=== PATIENT | female | born 1960 | race Caucasian/White ===

== ENCOUNTER 2020-02-17 16:35 | Emergency (ER) | payer OTHER, SELFPAY ==
[2020-02-17] VITALS (7 sets, daily range): BP systolic 112–129; BP diastolic 70–97; PULSE 53–132; RESP 13–22; TEMP 36.3–36.8; O2SAT 96–99
--- NOTE | ~2020-02-17 | XR_ITS ---
EXAMINATION: XR chest 2V DATE: 02/17/2020 17:27 INDICATION: Chest pain and dizziness TECHNIQUE: PA and lateral views of the chest are obtained. COMPARISON: None available FINDINGS: The lungs are free of acute opacities. There is no pleural effusion or pneumothorax. The ca rdiomediastinal silhouette is normal. The visualized bones and soft tissues are unremarkable. IMPRESSION: 1. No acute cardiopulmonary abnormality. Reviewed, dictated and finalized at location A.
--- NOTE | 2020-02-17 16:57 | ECG_ITS ---
Measurements Intervals [place] Rate: 119 P: 19 ND: 125 QRS: 67 QRSD: 84 T: 58 QT: 307 QTc: 432 Interpretive Statements SINUS RHYTHM WITH SHORT RUNS OF ATRIAL TACHYCARDIA ABNORMAL ECG Electronically Signed On 02-17-2020 20:21:40 CDT by Moisés Dewey D.O.
[2020-02-17 17:31] LABS: Basophils Percent Auto 0.4 % (0.2-1.2); Eosinophils Absolute Auto 0.2 K/mm3 (0-0.3); Eosinophils Percent Auto 2.2 % (0-4.4); Hematocrit 37.8 % (37.0-47.0); Hemoglobin 12.7 g/dL (12.0-15.0); Immature Granulocyte Absolute 0.03 K/mm3 (0.00-0.031); Immature Granulocyte Percent A 0.4 % (0-0.5); Lymphocytes Absolute Auto 2.53 K/mm3 (0.9-3.2); Lymphocytes Percent Auto 31.1 % (18.3-44.2); Mean Corpuscular HGB Conc 33.6 g/dl (32-36); Mean Corpuscular Hemoglobin 28.2 pg (26-34); Mean Platelet Volume 9.9 fl (7.4-10.4); Monocytes Absolute Auto 0.4 K/mm3 (0.1-0.6); Monocytes Percent Auto 5.3 % (2.6-8.5); Neutrophils Absolute Auto 4.9 K/mm3 (1.3-6.7); Neutrophils Percent Auto 60.6 % (45.5-73.1); Platelet Count Result 330 k/mm3 (150-375); Red Cell Distribution Width 12.3 % (11.5-14.5); White Blood Count 8.1 K/mm3 (4.5-10.0)
[2020-02-17 17:37] LABS: Prothrombin Time 13.1 Seconds (11.1-14.7)
[2020-02-17 17:38] LABS: Partial Thromboplastin Time 26.6 SECONDS (22.3-36.8)
[2020-02-17 17:45] LABS: Anion Gap 9 mmol/L (8-16); Blood Urea Nitrogen 10 mg/dL (7-17); Calcium 9.6 mg/dL (8.4-10.2); Carbon Dioxide 24 mmol/L (22-30); Chloride 104 mmol/L (98-107); Estimated CRCL calculation 54 ml/min; Estimated Glomerular Filt Rate > 60; Glucose 111 mg/dL (65-105); Potassium 3.8 mmol/L (3.4-5.0); Sodium 137 mmol/L (137-145)
[2020-02-17 17:52] LABS: Troponin I < 0.012 ng/mL (0.000-0.034)
--- NOTE | 2020-02-17 18:53 | PC.NURSE ---
Patient reports shortness of breath with NSAIDS and aspirin. Aspirin order discontinued due to this adverse reaction.
--- NOTE | 2020-02-17 19:09 | ED.ARRPALP ---
HPI - Arrhythmia/Palpitations General Chief Complaint: Arrhythmia/Palpitations Stated Complaint: dizzy/lightheaded/ho a fib Time Seen by Provider: 02/17/20 19:06 Source: patient Mode of arrival: ambulatory Limitations: no limitations History of Present Illness HPI narrative: Patient is a 59-year-old female with a history of hypothyroidism, paroxysmal atrial fibrillation not on any anticoagulation who presents for evaluation of palpitations. Patient states that times since 3 PM, she has felt she has had an irregular heartbeat or skipped beats. Reports some associated lightheadedness and dizziness without syncope. She denies any chest pain. No fever, cough, cold type symptoms. No recent sick contacts. No leg swelling or leg pain. No numbness or weakness. Patient states she has seen a physician office nurse at [facility] approximately 2 to 3 years ago who was not concerned about these palpitations and advised her to take flecainide if she was symptomatic. Patient does not currently have this medication. Related Data Home Medications Medication Instructions Recorded Confirmed albuterol sulfate INHALATION 02/17/20 levothyroxine [Synthroid] 02/17/20 lisinopril 02/17/20 Allergies Allergy/AdvReac Type Severity Reaction Status Date / Time aspirin AdvReac Difficulty Verified 02/17/20 18:51 Breathing NSAIDS (Non-Steroidal AdvReac Difficulty Verified 02/17/20 17:11 Anti-Inflamma Breathing Review of Systems Review of Systems: Narrative: CONSTITUTIONAL: Denies fever, chills, or sweats. ENT: Denies rhinorrhea, congestion, sore throat, or otalgia. CARDIOVASCULAR: Denies chest pain, or edema, reports palpitations RESPIRATORY: Denies cough or dyspnea. GASTROINTESTINAL: Denies abdominal pain, nausea, vomiting, or diarrhea. GENITOURINARY: Denies dysuria or hematuria. SKIN: Denies rash or itching. MUSCULOSKELETAL: Denies back pain, joint pain, or myalgia. NEUROLOGIC: Denies headache, numbness, or weakness. [facility] Past Medical History Medical History (Updated 02/17/20 @ 21:26 by Courtney Burk MD) Acid reflux Hypothyroidism Social History Social History (Updated 02/17/20 @ 19:30 by Courtney Burk MD) Smoking status: Never smoker Substance use: never Gender identity (if verbalized by the patient): Female Exam Narrative: Exam Narrative: GENERAL: Awake, alert, conversant HEAD: Normocephalic, atraumatic. EYES: PERRLA and EOMI. ENT: Nares clear, no rhinorrhea or epistaxis. Mucous membranes moist. NECK: Supple. CHEST: No respiratory distress, breathing even and non labored HEART: Regular rate, P waves present, regular rhythm ABDOMEN:Non distended, non tender EXTREMITIES: Normal range of motion. No edema. SKIN: Warm, dry, no rash. NEURO:No focal deficits. Alert and oriented x3 Course Vital Signs Vital signs: Vital Signs Temperature 36.8 C 02/17/20 17:08 Pulse Rate 53 L 02/17/20 17:08 Respiratory Rate 18 02/17/20 17:08 Blood Pressure 123/70 02/17/20 17:08 Pulse Oximetry 97 02/17/20 17:08 Temperature 36.3 C L 02/17/20 20:43 Pulse Rate 79 02/17/20 20:43 Respiratory Rate 22 H 02/17/20 20:43 Blood Pressure 118/87 02/17/20 20:43 Pulse Oximetry 97 02/17/20 20:43 MDM - Arrhythmia/Palpitations MDM Narrative Medical decision making narrative: Patient presenting for evaluation of palpitations. At the time of assessment, symptoms are quite mild although she is aware of the palpitations. No current associated chest pain, shortness of breath, lightheadedness or dizziness. Patient states she notices the symptoms most with exertion or stress. IV access obtained and labs are drawn. Patient had serial EKGs which are most consistent with multifocal atrial tachycardia, third EKG does appear to have this patient back in sinus rhythm and patient is asymptomatic at this time. No elevations in troponin. Patient does not have signs or symptoms of a pulmonary embolism, Well
--- NOTE | 2020-02-17 20:04 | ECG_ITS ---
Measurements Intervals [place] Rate: 93 P: 31 [place]: 205 QRS: 32 QRSD: 91 T: 65 QT: 381 QTc: 474 Interpretive Statements ATRIAL FLUTTER/TACHYCARDIA WITH RAPID VENTRICULAR RESPONSE WITH 2 SINUS BEATS ABNORMAL ECG Electronically Signed On 02-17-2020 20:23:43 CDT by Moisés Dewey D.O.
[2020-02-17 20:18] LABS: Troponin I < 0.012 ng/mL (0.000-0.034)
--- NOTE | 2020-02-17 20:51 | ECG_ITS ---
Measurements Intervals [place] Rate: 71 P: 0 [place]: 139 QRS: 52 QRSD: 85 T: 63 QT: 377 QTc: 411 Interpretive Statements SINUS RHYTHM NORMAL ECG Electronically Signed On 02-18-2020 7:28:12 CDT by Moisés Dewey D.O.
== END 2020-02-17 21:49 | disposition home or self-care (01) ==
PROVIDERS: Emergency Medicine; Emergency Provider Emergency Medicine; PCP Family Medicine
DX: R00.2 Palpitations (principal); I47.1 Supraventricular tachycardia; E03.9 Hypothyroidism, unspecified; I48.0 Paroxysmal atrial fibrillation; K21.9 Gastro-esophageal reflux disease without esophagitis
CPT/HCPCS: 36415; 71046; 80048; 84443; 84484; 85025; 85610; 85730; 93005; 99284

== ENCOUNTER → 2021-10-11 15:53 | Outpatient (CLI) | payer OTHER, SELFPAY ==
--- NOTE | ~2021-10-11 | MM_ITS ---
EXAMINATION: MM screening luis BI w maria d HISTORY: Screening mammogram TECHNIQUE: Craniocaudal and mediolateral oblique 3-D tomosynthesis images were obtained and synthetic 2-D images were generated. CAD analysis was submitted and interpreted. COMPARISON: 09/23/2018 bilateral screening mammogram BREAST PARENCHYMAL COMPOSITION: There are scattered areas of fibroglandular density. FINDINGS: There is no evidence of suspicious mass, calcification, or architectural distortion to sugg est malignancy in either breast. There has been no suspicious interval change. IMPRESSION: 1. No mammographic evidence of malignancy. 2. Recommend routine screening mammography in one year. BI-RADS Category 1: Negative Reviewed, dictated and finalized at location A.
== END ==
PROVIDERS: PCP Family Medicine; Visit Provider Physician Assistant
DX: Z12.31 Encounter for screening mammogram for malignant neoplasm of breast (principal)
CPT/HCPCS: 77063; 77067

== ENCOUNTER 2022-10-11 14:43 | Emergency (ER) | payer OTHER, SELFPAY ==
[2022-10-11 15:00] VITALS: BP 127/73; PULSE 66; RESP 12; TEMP 37.1; O2SAT 99
[2022-10-11 15:01] VITALS: BP 127/73; PULSE 66; RESP 12; TEMP 37.1; O2SAT 99
--- NOTE | 2022-10-11 15:20 | ED.EYEPROB ---
HPI - Eye Problem General Chief complaint: Eye Problems Stated complaint: left eye irritation Time Seen by Provider: 10/11/22 15:20 Source: patient Mode of arrival: ambulatory Limitations: no limitations History of Present Illness HPI Narrative: 62-year-old female presents with pain, clear drainage, light sensitivity to left eye. States that she was outside doing yd work and was walking backwards and was hit with a tree branch to her left eye. Injury happened around 11:00 a.m.. Denies vision change. All systems reviewed and negative except as noted above. Related Data Home Medications Medication Instructions Recorded Confirmed albuterol sulfate 90 mcg/actuation 2 puff inhalation PRN PRN Wheezing 02/17/20 10/11/22 aerosol inhaler levothyroxine 88 mcg tablet 88 mcg PO DAILY 02/17/20 10/11/22 (Synthroid) lisinopril 10 mg tablet 10 mg PO DAILY 02/17/20 10/11/22 Allergies Allergy/AdvReac Type Severity Reaction Status Date / Time aspirin AdvReac Intermediate Wheezing Verified 10/11/22 15:18 NSAIDS (Non-Steroidal AdvReac Intermediate Wheezing Verified 10/11/22 15:18 Anti-Inflamma Review of Systems Review of Systems: CONSTITUTIONAL: Denies fever, chills, or sweats. EYES: Denies visual changes . Reports redness, clear discharge, light sensitivity left eye.. ENT: Denies rhinorrhea, congestion, sore throat, or otalgia. CARDIOVASCULAR: Denies chest pain, palpitations, or edema. RESPIRATORY: Denies cough or dyspnea. GASTROINTESTINAL: Denies abdominal pain, nausea, vomiting, or diarrhea. GENITOURINARY: Denies dysuria or hematuria. SKIN: Denies rash or itching. MUSCULOSKELETAL: Denies back pain, joint pain, or myalgia. NEUROLOGIC: Denies headache, numbness, or weakness. PSYCHIATRIC: Denies anxiety or depression. All other systems reviewed are negative, except as documented in HPI. [facility] Past Medical History Medical History (Updated 10/11/22 @ 15:28 by Sabrina Denton NP) Anemia Essential (primary) hypertension History of hepatitis C Hypothyroidism Migraine Multifocal ectopic atrial beats Surgical History Surgical History (Updated 08/08/22 @ 11:26 by ANA Prince) History of total abdominal hysterectomy 11/2007 History of tubal ligation 01/1996 Social History Social History (Updated 08/08/22 @ 10:00 by Kira Case MA) Smoking packs per day: 0.5 Smoking cigarettes per day: 10.0 Years smoked: 10 Smoking pack-years: 5.00 Smoking status: Former smoker Alcohol intake: never Substance use: never Substance use type: does not use Lack of Transportation: No Lack of Food: Never True Current Housing: I Have Housing Concerned About Future Housing: No Difficulty Paying Gas/Electric Bills: No Difficulty Paying for Meds: No Currently Unemployed: No Education: Associate Degree Difficulty w/ Childcare or Family Care: No Living arrangements: with family Occupation/Education: occupation Gender identity (if verbalized by the patient): Female Sexual Orientation (if Verbalized by the Patient): Straight or Heterosexual Spiritual care concerns: No Comments At time of signature, agree with nursing past medical, surgical, social and family history. There is no relevant family history pertinent to the presenting complaint. Exam Narrative: GENERAL: This is a well-nourished, well-developed patient, in no apparent distress. HEAD: normocephalic, atraumatic. EYES: PERRL. Sclera Mild erythema. Clear drainage noted. Vision is grossly intact. Topical anesthetic was instilled with good anesthesia using 1gtt of opth anesthetic agent (tetracaine). Fluorescein stain of the L eye was performed withuptake of dye. Corneal abrasion to left eye at 2 oclock. NO FB, ulcer or dendritic lesions. Upper lid was everted and no FB or lesions were noted. Normal saline irrigation eye solution was performed and the patient tolerated the procedure well, no adverse
[2022-10-11] MEDS: TETANUS,DIPHTHERIA,AC PERTUSSIS ADULT (0.5 ML) BOOSTRIX IM (15:33)
== END 2022-10-11 15:36 | disposition home or self-care (01) ==
PROVIDERS: Emergency Provider Nurse Practitioner Family; PCP Family Medicine
DX: S05.02XA Injury of conjunctiva and corneal abrasion without foreign body, left eye, initial encounter (principal); W22.8XXA Striking against or struck by other objects, initial encounter; Z23 Encounter for immunization; I10 Essential (primary) hypertension; E03.9 Hypothyroidism, unspecified; Z86.19 Personal history of other infectious and parasitic diseases; Z87.891 Personal history of nicotine dependence
CPT/HCPCS: 90471; 90715; 99213; A9270; G0463

== ENCOUNTER 2022-10-22 02:12 | Day surgery (SDC) | payer OTHER, SELFPAY ==
[2022-10-06 13:14] VITALS: BMI 24.9
--- NOTE | 2022-10-21 16:04 | PM.HPGS ---
History of Present Illness History of Present Illness Consent: Risks, benefits, and alternatives have been discussed and questions answered. Patient agrees to proceed with procedure. Chief complaint: neoplasm screening Narrative: Winsome Horvath is a 62 year old female referred for colon cancer screening. Review of Systems Review of Systems: All systems reviewed & are unremarkable except as noted in HPI and below PMFSH Past Medical History Medical History Anemia Essential (primary) hypertension History of hepatitis C Hypothyroidism Migraine Multifocal ectopic atrial beats Surgical History Surgical History History of total abdominal hysterectomy 11/2007 History of tubal ligation 01/1996 Social History Social History Smoking packs per day: 0.5 Smoking cigarettes per day: 10.0 Years smoked: 10 Smoking pack-years: 5.00 Smoking status: Former smoker Alcohol intake: never Substance use: never Substance use type: does not use Lack of Transportation: No Lack of Food: Never True Current Housing: I Have Housing Concerned About Future Housing: No Difficulty Paying Gas/Electric Bills: No Difficulty Paying for Meds: No Currently Unemployed: No Education: Associate Degree Difficulty w/ Childcare or Family Care: No Living arrangements: with family Occupation/Education: occupation Gender identity (if verbalized by the patient): Female Sexual Orientation (if Verbalized by the Patient): Straight or Heterosexual Spiritual care concerns: No Meds Home Medications and Allergies Home Medications Medication Instructions Recorded Confirmed Type albuterol sulfate 90 mcg/actuation 2 puff inhalation PRN PRN Wheezing 02/17/20 10/11/22 History aerosol inhaler diltiazem HCl 120 mg 120 mg PO DAILY 30 days #30 caps 02/17/20 10/11/22 Rx capsule,extended release 24 hr (Cardizem CD) levothyroxine 88 mcg tablet 88 mcg PO DAILY 02/17/20 10/11/22 History (Synthroid) lisinopril 10 mg tablet 10 mg PO DAILY 02/17/20 10/11/22 History ofloxacin 0.3 % eye drops See Rx Instructions EACH EYE 10/11/22 10/22/22 Rx .COMPLEX #5 mL Allergies Allergy/AdvReac Type Severity Reaction Status Date / Time aspirin AdvReac Intermediate Wheezing Verified 10/22/22 09:37 NSAIDS (Non-Steroidal AdvReac Intermediate Wheezing Verified 10/22/22 09:37 Anti-Inflamma Exam Const: General: alert Orientation/consciousness: patient oriented x3 Resp: Auscultation: clear to auscultation bilaterally Cardio: Rhythm: regular rhythm GI: GI Palp: Yes Soft to palpation and No Tenderness to palpation present (GI) Neuro: General: patient oriented x3 Assessment and Plan Assessment and plan (1) Colon cancer screening: Code(s): Z12.11 - Encounter for screening for malignant neoplasm of colon Status: Acute Assessment and Plan: Colonoscopy with possible biopsy or polypectomy or cautery or injection of substances.
[2022-10-22 09:39] VITALS: BP 123/72; PULSE 64; RESP 18; TEMP 36.7; O2SAT 97
[2022-10-22] MEDS: LACTATED RINGERS 1,000 ML 150 ML IV CONT (09:48)
--- NOTE | 2022-10-22 10:22 | WPDANESEPPF ---
Anes - Initial Pre Proc Eval Procedure: Operation Date: 10/22/22 11:00 Proposed Procedures p Screening Colonoscopy - Yonathan Petersen MD Date/Time: 10/22/22 10:22 Surgeon: Yonathan Petersen MD Pre Op Diagnosis: neoplasm screening Patient Data Age: 62 Gender: F Height: 1.68 m Weight: 69.5 kg Last Vital Signs Temp 98.1 F 10/22/22 09:39 Pulse 64 10/22/22 09:39 Resp 18 10/22/22 09:39 BP 123/72 10/22/22 09:39 Pulse Ox 97 10/22/22 09:39 O2 Del Method Room Air 10/22/22 09:39 Allergies Allergy/AdvReac Type Severity Reaction Status Date / Time aspirin AdvReac Intermediate Wheezing Verified 10/22/22 09:37 NSAIDS (Non-Steroidal AdvReac Intermediate Wheezing Verified 10/22/22 09:37 Anti-Inflamma Home Medications Medication Instructions Recorded Confirmed Type albuterol sulfate 90 mcg/actuation 2 puff inhalation PRN PRN Wheezing 02/17/20 10/11/22 History aerosol inhaler diltiazem HCl 120 mg 120 mg PO DAILY 30 days #30 caps 02/17/20 10/11/22 Rx capsule,extended release 24 hr (Cardizem CD) levothyroxine 88 mcg tablet 88 mcg PO DAILY 02/17/20 10/11/22 History (Synthroid) lisinopril 10 mg tablet 10 mg PO DAILY 02/17/20 10/11/22 History ofloxacin 0.3 % eye drops See Rx Instructions EACH EYE 10/11/22 10/22/22 Rx .COMPLEX #5 mL Patient hx anesthesia problems: none Family hx anesthesia problems: none Results Review: All pre-operative results and documents have been reviewed as part of the pre-operative evaluation. [facility] Past Medical History Medical History Anemia Essential (primary) hypertension History of hepatitis C Hypothyroidism Migraine Multifocal ectopic atrial beats Surgical History Surgical History History of total abdominal hysterectomy 11/2007 History of tubal ligation 01/1996 Social History Social History Smoking packs per day: 0.5 Smoking cigarettes per day: 10.0 Years smoked: 10 Smoking pack-years: 5.00 Smoking status: Former smoker Alcohol intake: never Substance use: never Substance use type: does not use Lack of Transportation: No Lack of Food: Never True Current Housing: I Have Housing Concerned About Future Housing: No Difficulty Paying Gas/Electric Bills: No Difficulty Paying for Meds: No Currently Unemployed: No Education: Associate Degree Difficulty w/ Childcare or Family Care: No Living arrangements: with family Occupation/Education: occupation Gender identity (if verbalized by the patient): Female Sexual Orientation (if Verbalized by the Patient): Straight or Heterosexual Spiritual care concerns: No Anes - Eval Final PreProcedure Day of Procedure 10/22/22 10:22 Patient weight: normal Heart: regular rate and rhythm Lungs: clear to auscultation Airway: Mallampati scale class II Neurological: alert and oriented Last oral intake: >/= 8 hours ASA classification: III Emergent: no Anesthetic plan: proceed Anesthesia type and monitoring: general GIVS and standard monitoring Results Review: All pre-operative results and documents have been reviewed as part of the pre-operative evaluation. Informed Consent: The patient's anesthetic plan and its attendant risks and benefits were discussed with the patient/family/POA. Questions were solicited and answers provided to the satisfaction of the patient/family/POA.
[2022-10-22 11:04] VITALS: BP 107/68; PULSE 71; RESP 29; O2SAT 96
[2022-10-22 11:14] VITALS: BP 117/72; PULSE 69; RESP 18; O2SAT 98
[2022-10-22 11:24] VITALS: BP 131/92; PULSE 68; RESP 19; O2SAT 100
== END 2022-10-22 11:31 | disposition home or self-care (01) ==
PROVIDERS: PCP Family Medicine; Visit Provider Internal Medicine Gastroenterology
PROC: 0DJD8ZZ Inspection of Lower Intestinal Tract, Via Natural or Artificial Opening Endoscopic (ICD-10-PCS; CPT 45378; principal; 2022-10-22 11:00)
DX: Z12.11 Encounter for screening for malignant neoplasm of colon (principal); I10 Essential (primary) hypertension; E03.9 Hypothyroidism, unspecified; Z86.19 Personal history of other infectious and parasitic diseases; Z87.891 Personal history of nicotine dependence; Z79.51 Long term (current) use of inhaled steroids
CPT/HCPCS: 45378; J2001; J2704; J7120

== ENCOUNTER → 2022-11-03 16:44 | Outpatient (CLI) | payer OTHER, SELFPAY ==
--- NOTE | ~2022-11-03 | MM_ITS ---
EXAMINATION: MM screening luis BI w maria d HISTORY: Screening mammogram TECHNIQUE: Craniocaudal and mediolateral oblique 3-D tomosynthesis images were obtained and synthetic 2-D images were generated. CAD analysis was submitted and interpreted. COMPARISON: 10/11/2021, 09/23/2018 bilateral screening mammogram examinations BREAST PARENCHYMAL COMPOSITION: There are scattered areas of fibroglandular density. FINDINGS: There is no evidence of suspicious mass, calcification, or architectural distortion to sugg est malignancy in either breast. There has been no suspicious interval change. IMPRESSION: 1. No mammographic evidence of malignancy. 2. Recommend routine screening mammography in one year. BI-RADS Category 1: Negative Reviewed, dictated and finalized at location A.
== END ==
PROVIDERS: PCP Family Medicine; Visit Provider Family Medicine
DX: Z12.31 Encounter for screening mammogram for malignant neoplasm of breast (principal)
CPT/HCPCS: 77063; 77067

== ENCOUNTER 2023-02-19 11:13 | Outpatient (CLI) | payer OTHER, SELFPAY ==
--- NOTE | ~2023-02-19 | XR_ITS ---
EXAMINATION: XR chest 2V 02/19/2023 11:46 INDICATION: Asthma. PROCEDURE: 2 view chest COMPARISON: 02/17/2020 FINDINGS: The lungs are clear. The cardiomediastinal silhouette is within normal limits. There are no pleural effusions. There is no pneumothorax suspected. IMPRESSION: 1: NO ACUTE CARDIOPULMONARY DISEASE. Reviewed, dictated and finalized at location L.
== END 2023-02-19 11:14 | disposition home or self-care (01) ==
PROVIDERS: PCP Family Medicine; Visit Provider Internal Medicine Pulmonary Disease
DX: J84.10 Pulmonary fibrosis, unspecified (principal); J45.909 Unspecified asthma, uncomplicated
CPT/HCPCS: 71046

== ENCOUNTER 2023-03-26 14:09 | Outpatient (CLI) | payer OTHER, SELFPAY ==
--- NOTE | 2023-03-26 17:14 | WPDPFTINT ---
PFT Procedure Performed PFT Procedure Performed Spirometry with Pre/Post Bronchodilator Plethysmography (Lung Vol) Diffusing Cap (DLCO) Flow Vol Loop PFT Interpretation This is a pulmonary function test with pre and post-bronchodilator spirometry, plethysmography and diffusing capacity. The test was performed and results interpreted in accordance with the 2019 and 2005 ATS/ERS Task Force guidelines respectively using the Global Lung Function Initiative-2012 reference equations. Patient demonstrated good effort and cooperation. Reproducibility criteria were met. The quality of the pre bronchodilator spirometry maneuver was Grade C and post bronchodilator spirometry maneuver was Grade B. Findings: Spirometry: The contour the inspiratory and expiratory flow tracing are normal. The pre bronchodilator FVC is 3.52 L, 105% predicted. The pre bronchodilator FEV1 is 2.64 L, 101% predicted. The pre bronchodilator FEV1: FVC ratio 75%. The post bronchodilator FVC is 3.59 L, representing a 2% increase. The post bronchodilator FEV1 is 2.73 L, representing a 4% increase. The post bronchodilator FEV1: FVC ratio 76%. Plethysmography: The total lung capacity is 5.60 L, 104% predicted. The functional residual capacity is 2.49 L, 81% predicted. The residual volume is 1.91 L, 90% predicted. Diffusing capacity: The diffusing capacity unadjusted for hemoglobin and carboxyhemoglobin is 20.1, 90% predicted. The diffusing capacity adjusted for alveolar volume is 3.99, 92% predicted. Impression: The spirometry is normal without evidence of an obstructive abnormality. There is no significant improvement after inhaling a single dose of albuterol. The lung volumes are normal. The diffusing capacity is normal. There are no prior studies for comparison
== END 2023-03-26 14:10 | disposition home or self-care (01) ==
PROVIDERS: PCP Family Medicine; Visit Provider Internal Medicine Pulmonary Disease
DX: J45.909 Unspecified asthma, uncomplicated (principal)
CPT/HCPCS: 94060; 94726; 94729

== ENCOUNTER 2024-04-04 10:36 | Outpatient (CLI) | payer OTHER, SELFPAY ==
--- NOTE | ~2024-04-04 | XR_ITS ---
EXAMINATION: XR knee LT 3V, XR knee RT 3V DATE: 04/04/2024 11:04 INDICATION: Right knee pain TECHNIQUE: 1. Weight bearing anteroposterior, sunrise, and flexed lateral views of the right knee were obtained. 2. Weight bearing anteroposterior, sunrise, and flexed lateral views of the left knee were obtained. COMPARISON: None. FINDINGS: There is bilateral patella emani alignment otherwise normal at both knees. No fracture. Relatively sym metric mild medial and patellofemoral osteoarthritis with mild joint space narrowing at the medial co mpartment of both knees and small patellar marginal osteophytes. There are also small bilateral knee joint effusions. Soft tissues are otherwise unremarkable. IMPRESSION: 1. Relatively symmetric patella emani, mild medial and minimal patellofemoral osteoarthritis and small joint effusions at both knees. 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 Relatively symmetric patella emani, mild medial and minimal patellofemoral os teoarthritis and small joint effusions at both knees.
== END 2024-04-04 10:37 | disposition home or self-care (01) ==
PROVIDERS: PCP Family Medicine; Visit Provider Family Medicine
DX: M17.0 Bilateral primary osteoarthritis of knee (principal); M25.461 Effusion, right knee; M25.462 Effusion, left knee
CPT/HCPCS: 73562

== ENCOUNTER 2025-04-28 08:22 | Outpatient (CLI) | payer OTHER, SELFPAY ==
--- NOTE | ~2025-04-28 | MM_ITS ---
EXAMINATION: MM screening luis BI w maria d HISTORY: Screening. TECHNIQUE: Craniocaudal and mediolateral oblique 3-D tomosynthesis images were obtained and synthetic 2-D images were generated. CAD analysis was submitted and interpreted. COMPARISON: 2022, 2021, and 2018. BREAST PARENCHYMAL COMPOSITION: Dense: The breasts are heterogeneously dense FINDINGS: No suspicious masses are seen. There are no suspicious calcifications. No unexplained architectural distortion is seen. There are no skin or nipple abnormalities identified. There is no adenopathy seen on the images submitted. IMPRESSION: No mammographic or sonographic evidence to suggest malignancy is seen. The patient may return to screening mammography as per ACR guidelines. BI-RADS 1 - Negative. 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 The faye ent may return to screening mammography as per ACR guidelines. BI-RADS 1 - Negative.
== END 2025-04-28 08:23 | disposition home or self-care (01) ==
LOC: CHSIMG 08:22
PROVIDERS: PCP Family Medicine
DX: Z12.31 Encounter for screening mammogram for malignant neoplasm of breast (principal)
CPT/HCPCS: 77063; 77067